=== PATIENT | male | born 1990 | race Caucasian/White ===

== ENCOUNTER 2020-05-30 19:07 | Inpatient (IN) | payer MEDICAID, SELFPAY ==
[~2020-05-30] VITALS: Ht 172.7 cm; Wt 63.5 kg
[2020-05-30 19:15] VITALS: BP_SYST 154
[2020-05-30 20:29] LABS: BASOPHILS % (AUTO) 0.6 % (0.0-2.0); EOSINOPHILS # (AUTO) 0.1 K/uL (0.0-0.4); EOSINOPHILS % (AUTO) 1.4 % (0.0-4.0); HEMATOCRIT 52.2 % (36-54); HEMOGLOBIN 17.7 g/dL (14.0-18.0); LYMPHOCYTES # (AUTO) 1.5 K/uL (1.0-5.5); LYMPHOCYTES % (AUTO) 21.3 % (20.5-51.5); MEAN CORPUSCULAR HEMOGLOBIN 33 pg (27-31); MEAN CORPUSCULAR HGB CONC 34 % (32-36); MEAN CORPUSCULAR VOLUME 98 fL (79.0-98.0); MONOCYTES # (AUTO) 0.8 K/uL (0.0-1.0); MONOCYTES % (AUTO) 11.6 % (1.7-9.3); NEUTROPHILS # (AUTO) 4.5 K/uL (1.8-7.7); NEUTROPHILS % (AUTO) 65.1 % (40.0-70.0); PLATELET COUNT (AUTO) 144 K/uL (130-430); RED BLOOD CELL COUNT(AUTO) 5.31 MIL/uL (4.2-6.2); RED CELL DISTRIBUTION WIDTH 17.5 % (9.0-15.0); WHITE BLOOD COUNT (AUTO) 6.9 K/uL (4.8-10.8)
[2020-05-30 20:49] LABS: CALCIUM 8.6 mg/dL (8.4-11.0); CREATININE 0.95 mg/dL (0.55-1.30)
[2020-05-30 20:56] LABS: ALBUMIN 3.8 g/dL (3.4-4.8); TOTAL BILIRUBIN 4.5 mg/dL (0.0-1.0)
[2020-05-30 21:22] LABS: POTASSIUM 2.6 mmol/L (3.5-5.1)
[2020-05-30] MEDS ORDERED: POTASSIUM CHLORIDE 20 MEQ/PKT PACKET PO ONE ×2 (21:30→22:45)
[2020-05-30] MEDS ORDERED: MAGNESIUM SULFATE 1 GM/2 ML VIAL IVP ONE (22:15)
[2020-05-30] MEDS ORDERED: ACETAMINOPHEN 500 MG TABLET PO ONE (22:30)
[2020-05-30] MEDS ORDERED: ACETAMINOPHEN 500 MG TABLET ONE (22:31)
[2020-05-30 22:39] LABS: BILIRUBIN,URINE 3+ (NEGATIVE); BLOOD, URINE NEGATIVE (NEGATIVE); CLARITY/URINE CLEAR (CLEAR); COLOR,URINE ORANGE (YELLOW); GLUCOSE,URINE TRACE (NEGATIVE); KETONES,URINE TRACE (NEGATIVE); LEUKOCYTE ESTERASE ,URINE NEGATIVE (NEGATIVE); NITRITE, URINE POSITIVE (NEGATIVE); PH,URINE 6.5 (5.0-8.0); PROTEIN URINE TRACE (NEGATIVE)
[2020-05-30 22:44] LABS: BACTERIA,URINE MODERATE /HPF (None Seen)
[2020-05-30] MEDS ORDERED: ONDANSETRON HCL 4 MG/2 ML VIAL ONE (22:45)
[2020-05-30] MEDS ORDERED: ONDANSETRON HCL 4 MG/2 ML VIAL IVP ONE (22:45)
[2020-05-30] MEDS ORDERED: NACL 0.9% 1,000 ML IV ONE (22:45)
[2020-05-30] MEDS ORDERED: cefTRIAXone 1 GM in D5W 50 ML IV ONE (23:00)
[2020-05-30] MEDS ORDERED: KETOROLAC TROMETHAMINE 15 MG VIAL IVP ONE (23:00)
[2020-05-30] MEDS ORDERED: metroNIDAZOLE 500 mg/NS 100 ML IV ONE (23:00)
[2020-05-30] MEDS ORDERED: cefTRIAXone 1 GM VIAL ONE (23:19)
[2020-05-30] MEDS ORDERED: levETIRAcetam 500 MG TABLET PO ONE (23:30)
[2020-05-31] MEDS ORDERED: NACL 0.9% 1,000 ML IV ONE (00:15)
[2020-05-31] MEDS ORDERED: MORPHINE 4 MG/ML INJ. SYRINGE IVP ONE ×3 (00:45→06:00)
[2020-05-31] MEDS ORDERED: MORPHINE 4 MG/ML INJ. SYRINGE ONE (04:02)
[2020-05-31] MEDS ORDERED: ONDANSETRON HCL 4 MG/2 ML VIAL IVP ONE (06:00)
[2020-05-31] MEDS: D5NS 1,000 ML IV SCH ×2 (07:47→22:40)
[2020-05-31] MEDS ORDERED: ONDANSETRON HCL 4 MG/2 ML VIAL IVP PRN (09:30)
[2020-05-31] MEDS ORDERED: METOCLOPRAMIDE HCL 10 MG/2 ML VIAL IVP PRN (09:30)
[2020-05-31] MEDS ORDERED: BANANA BAG 1 EA, FOLIC ACID 1 MG, THIAMINE HCL 100 MG, MAGNESIUM SULFATE 1 GM, MVI 10 M... IV SCH ×5 (10:15)
[2020-05-31 11:12] LABS: BASOPHILS % (AUTO) 0.9 % (0.0-2.0); EOSINOPHILS # (AUTO) 0.1 K/uL (0.0-0.4); EOSINOPHILS % (AUTO) 1.1 % (0.0-4.0); HEMATOCRIT 45.3 % (36-54); HEMOGLOBIN 15.6 g/dL (14.0-18.0); LYMPHOCYTES # (AUTO) 0.9 K/uL (1.0-5.5); LYMPHOCYTES % (AUTO) 18.2 % (20.5-51.5); MEAN CORPUSCULAR HEMOGLOBIN 34 pg (27-31); MEAN CORPUSCULAR HGB CONC 34 % (32-36); MEAN CORPUSCULAR VOLUME 98 fL (79.0-98.0); MONOCYTES # (AUTO) 0.4 K/uL (0.0-1.0); MONOCYTES % (AUTO) 8.6 % (1.7-9.3); NEUTROPHILS # (AUTO) 3.7 K/uL (1.8-7.7); NEUTROPHILS % (AUTO) 71.2 % (40.0-70.0); PLATELET COUNT (AUTO) 98 K/uL (130-430); RED BLOOD CELL COUNT(AUTO) 4.63 MIL/uL (4.2-6.2); RED CELL DISTRIBUTION WIDTH 17.7 % (9.0-15.0); WHITE BLOOD COUNT (AUTO) 5.1 K/uL (4.8-10.8)
[2020-05-31 11:23] LABS: CALCIUM 7.2 mg/dL (8.4-11.0); CREATININE 0.76 mg/dL (0.55-1.30)
[2020-05-31 11:30] LABS: ALBUMIN 3.1 g/dL (3.4-4.8); TOTAL BILIRUBIN 3.3 mg/dL (0.0-1.0)
[2020-05-31] MEDS ORDERED: PIPERACILLIN/TAZO 3.375 GM in D5W 50 ML IV ONE (11:45)
[2020-05-31] MEDS ORDERED: PIPERACILLIN/TAZOBACTAM 3.375 GM/VIAL (ZOSYN) IV ONE ×2 (11:49→20:19)
[2020-05-31 12:07] LABS: POTASSIUM 2.9 mmol/L (3.5-5.1)
[2020-05-31] MEDS: LORazepam 2 MG/ML VIAL IVP PRN (12:09)
[2020-05-31] MEDS ORDERED: LEVE750T4 PO (12:21)
[2020-05-31] MEDS ORDERED: FOLIC ACID 1 MG, MVI 10 ML in NACL 0.9% 1,000 ML IV SCH (16:00)
[2020-05-31] MEDS ORDERED: THIAMINE HCL 100 MG, MAGNESIUM SULFATE 1 GM in NS 100 ML IV SCH (16:00)
[2020-05-31 16:30] VITALS: BP_SYST 155
[2020-05-31] MEDS ORDERED: MORPHINE 2 MG/ML INJ. SYRINGE IVP PRN (17:45)
[2020-05-31] MEDS: MORPHINE 4 MG/ML INJ. SYRINGE IVP PRN ×2 (18:20→23:15)
[2020-05-31] MEDS: PIPERACILLIN/TAZO 3.375 GM in D5W 50 ML IV SCH ×2 (22:31→23:19)
[2020-05-31 22:41] VITALS: BP_SYST 160
[2020-06-01] MEDS: LORazepam 2 MG/ML VIAL IVP PRN ×2 (01:07→13:19)
[2020-06-01] MEDS: D5NS 1,000 ML IV SCH ×2 (02:24→10:24)
[2020-06-01] MEDS: PIPERACILLIN/TAZO 3.375 GM in D5W 50 ML IV SCH ×2 (05:46→13:23)
[2020-06-01 06:38] VITALS: BP_SYST 157
[2020-06-01 06:43] LABS: BASOPHILS % (AUTO) 0.4 % (0.0-2.0); EOSINOPHILS # (AUTO) 0.1 K/uL (0.0-0.4); EOSINOPHILS % (AUTO) 1.9 % (0.0-4.0); HEMATOCRIT 42.8 % (36-54); HEMOGLOBIN 14.8 g/dL (14.0-18.0); MEAN CORPUSCULAR HEMOGLOBIN 34 pg (27-31); MEAN CORPUSCULAR HGB CONC 35 % (32-36); MEAN CORPUSCULAR VOLUME 98 fL (79.0-98.0); MONOCYTES # (AUTO) 0.5 K/uL (0.0-1.0); MONOCYTES % (AUTO) 8.3 % (1.7-9.3); NEUTROPHILS # (AUTO) 4.1 K/uL (1.8-7.7); NEUTROPHILS % (AUTO) 71.4 % (40.0-70.0); RED BLOOD CELL COUNT(AUTO) 4.37 MIL/uL (4.2-6.2); RED CELL DISTRIBUTION WIDTH 17.2 % (9.0-15.0); WHITE BLOOD COUNT (AUTO) 5.7 K/uL (4.8-10.8)
[2020-06-01 07:08] LABS: ALBUMIN 2.9 g/dL (3.4-4.8); CALCIUM 7.7 mg/dL (8.4-11.0); CREATININE 0.66 mg/dL (0.55-1.30); TOTAL BILIRUBIN 8.8 mg/dL (0.0-1.0)
[2020-06-01 07:43] LABS: POTASSIUM 2.8 mmol/L (3.5-5.1)
[2020-06-01 07:50] VITALS: BP_SYST 139
[2020-06-01] MEDS ORDERED: HYDROmorphone 2 MG/ML VIAL IVP PRN (09:00)
[2020-06-01] MEDS ORDERED: POTASSIUM CHLORIDE 40 MEQ in NS 250 ML IV ONE (09:00)
[2020-06-01] MEDS ORDERED: HYDROmorphone 1 MG INJ. 1 MG/ML AMPUL IVP PRN (09:00)
[2020-06-01] MEDS ORDERED: NALOXONE HCL 0.4 MG/ML AMP (NARCAN) IVP PRN (09:00)
[2020-06-01 11:30] LABS: PLATELET COUNT (AUTO) 77 K/uL (130-430)
[2020-06-01 13:10] VITALS: BP_SYST 128
[2020-06-01] MEDS ORDERED: NICOTINE 7 MG/24 HR PATCH.TD24 TD ONE (14:00)
[2020-06-02] MEDS ORDERED: NICOTINE 7 MG/24 HR PATCH.TD24 TD SCH (09:00)
[2020-06-04 00:07] LABS: CHLAMYDIA TRACHOMATIS NAA Negative (Negative); NEISSERIA GONORRHOEAE NAA Negative (Negative)
== END 2020-06-01 14:43 | disposition left against medical advice (07) | DRG 282 ==
LOC: SED 19:07 → SMU 05-31 06:18
PROVIDERS: ADMIT Internal Medicine Hospice and Palliative Medicine; ATTEND Internal Medicine Hospice and Palliative Medicine
DX: K85.20 Alcohol induced acute pancreatitis without necrosis or infection (principal); G40.909 Epilepsy, unspecified, not intractable, without status epilepticus; F10.20 Alcohol dependence, uncomplicated; F17.210 Nicotine dependence, cigarettes, uncomplicated; K80.20 Calculus of gallbladder without cholecystitis without obstruction; K82.8 Other specified diseases of gallbladder; E87.6 Hypokalemia; N12 Tubulo-interstitial nephritis, not specified as acute or chronic; K52.9 Noninfective gastroenteritis and colitis, unspecified; Z87.81 Personal history of (healed) traumatic fracture; Z20.828 Contact with and (suspected) exposure to other viral communicable diseases; Z53.21 Procedure and treatment not carried out due to patient leaving prior to being seen by health care provider
CPT/HCPCS: 36415; 74181; 76376; 76700-TC; 80053; 81000-TC; 82550-TC; 83605; 83690-TC; 85025; 87040-TC; 87086; 87491; 87591; 93005; 96365; 96368; 96375; 96376; 99285; J0696; J1170; J1885; J2060; J2270; J2405; J2543; J3411; J3475; J3480; J3490; J7030; J7050; J7060